=== PATIENT | female | born 1975 | race African-American/Black ===

== ENCOUNTER 2017-02-17 17:39 | Emergency (ER) | payer MEDICAID, MEDICARE ==
[~2017-02-17] VITALS: Ht 154.9 cm; Wt 63.5 kg
[2017-02-17 18:25] VITALS: BP 198/121
[2017-02-17] MEDS ORDERED: TRA200 PO (18:34)
--- NOTE | 2017-02-17 20:44 | NUR ---
PATIENT LEFT WITHOUT BEING SEEN BY DR. CORTEZ. NO FURTHER CARE PROVIDED FOR PATIENT.
== END 2017-02-17 20:44 | disposition left against medical advice (07) ==
LOC: MED 17:39
DX: L02.414 Cutaneous abscess of left upper limb (principal); Z53.21 Procedure and treatment not carried out due to patient leaving prior to being seen by health care provider

== ENCOUNTER 2023-10-14 11:41 | Emergency (ER) | payer MEDICAID ==
[~2023-10-14] VITALS: Ht 157.5 cm; Wt 64.9 kg
[~2023-10-14 11:41] MED LIST: TRA200 PO
[2023-10-14 12:01] VITALS: BP 149/84; PULSE 68; RESP 20; TEMP 98; O2SAT 98
[2023-10-14 14:22] LABS: BASOPHILS % (AUTO) 0.4 % (0.0-2.0); EOSINOPHILS # (AUTO) 0.5 K/uL (0-0.4); EOSINOPHILS % (AUTO) 7.2 % (0.0-4.0); HEMOGLOBIN 9.8 g/dL (12.0-16.0); LYMPHOCYTES # (AUTO) 1.3 K/uL (2.5-16.5); LYMPHOCYTES % (AUTO) 16.9 % (20.5-51.1); MEAN CORPUSCULAR HEMOGLOBIN 27 pg (27-31); MEAN CORPUSCULAR HGB CONC 32 g/dL (33-37); MEAN CORPUSCULAR VOLUME 84.2 fL (80-94); MONOCYTES # (AUTO) 0.5 K/uL (0.8-1.0); MONOCYTES % (AUTO) 7.1 % (1.7-9.3); NEUTROPHILS # (AUTO) 5.2 K/uL (1.8-7.7); NEUTROPHILS % (AUTO) 68.4 % (42.2-75.2); PLATELET COUNT (AUTO) 379 K/uL (140-450); RED BLOOD CELL COUNT(AUTO) 3.68 MIL/uL (4.20-5.40); WHITE BLOOD COUNT (AUTO) 7.6 K/uL (4.8-10.8)
[2023-10-14 14:39] LABS: INR 1.07 (0.8-1.2); PROTHROMBIN TIME 11.2 secs (10.8-13.4)
[2023-10-14 14:42] LABS: ANION GAP 14.4 (8-16); CALCIUM 9.5 mg/dL (8.5-10.1); POTASSIUM 5.4 mmol/L (3.5-5.1)
[2023-10-14 14:45] LABS: CREATININE 8.3 mg/dL (0.6-1.3)
[2023-10-14 14:50] LABS: ALBUMIN 3.2 g/dL (3.4-5.0); BILIRUBIN,DIRECT 0.2 mg/dL (0.0-0.3); TOTAL BILIRUBIN 0.5 mg/dL (0.0-1.0); TOTAL PROTEIN, SERUM 7.6 g/dL (6.4-8.2)
[2023-10-14 15:23] LABS: FLU A ANTIGEN negative (NEGATIVE); FLU B ANTIGEN NEGATIVE (NEGATIVE)
== END 2023-10-14 17:59 | disposition left against medical advice (07) ==
LOC: MED 11:41
DX: I12.0 Hypertensive chronic kidney disease with stage 5 chronic kidney disease or end stage renal disease (principal); N18.6 End stage renal disease; K70.31 Alcoholic cirrhosis of liver with ascites; R05.9 Cough, unspecified; Z20.822 Contact with and (suspected) exposure to COVID-19; E87.5 Hyperkalemia; Z99.2 Dependence on renal dialysis; Z79.899 Other long term (current) drug therapy
CPT/HCPCS: 36415; 71045; 80048; 80076; 81025; 85025; 85610; 99284